=== PATIENT | male | born 1985 | race Caucasian/White ===

== ENCOUNTER 2018-05-20 02:44 | Emergency (ER) | payer SELFPAY ==
[~2018-05-20] VITALS: Ht 180.3 cm; Wt 74.8 kg
[2018-05-20 03:26] LABS: BASOPHIL % 0.7 % (0-2); PLATELET COUNT 188 x10^3mcL (130-400); RED CELL DISTRIBUTION WIDTH 13.2 % (11.5-14.5)
[2018-05-20 03:53] LABS: CALCIUM 9.6 mg/dL (8.5-10.1); CARBON DIOXIDE 27.5 mmol/L (21-32); CHLORIDE SERUM 100 mmol/L (98-107); CREATININE SERUM 0.9 mg/dL (0.7-1.3); GFR1 > 60 mL/min; GLUCOSE SERUM 94 mg/dL (74-106); POTASSIUM SERUM 4.1 mmol/L (3.5-5.1); SODIUM SERUM 136 mmol/L (136-145)
[2018-05-20 03:58] LABS: ALBUMIN 4.6 g/dL (3.4-5.0); ALKALINE PHOSPHATASE 42 U/L (46-116); ALT/SGPT 22 U/L (16-63); AST/SGOT 17 U/L (15-37); BILIRUBIN TOTAL 0.53 mg/dL (0.20-1.00)
[2018-05-20 04:06] LABS: TOTAL PROTEIN, SERUM 8.5 g/dL (6.4-8.2)
[2018-05-20 04:49] LABS: microscopic required? YES; urine erythrocyte 3+ (NEGATIVE)
[2018-05-20 08:38] VITALS: BP 111/65
== END 2018-05-20 08:38 | disposition home or self-care (01) ==
LOC: ED 02:44
PROVIDERS: Emergency Medicine
DX: R31.9 Hematuria, unspecified (principal); R80.9 Proteinuria, unspecified
CPT/HCPCS: J1885; J7030; Q0092

== ENCOUNTER 2018-09-21 11:27 | Emergency (ER) | payer OTHER ==
[~2018-09-21] VITALS: Ht 180.3 cm; Wt 77.7 kg
[2018-09-21 11:37] VITALS: BP 148/89
== END 2018-09-21 13:00 | disposition home or self-care (01) ==
LOC: ED 11:27
DX: S96.911A Strain of unspecified muscle and tendon at ankle and foot level, right foot, initial encounter (principal); X58.XXXA Exposure to other specified factors, initial encounter; Y93.89 Activity, other specified; Y92.89 Other specified places as the place of occurrence of the external cause; Y99.8 Other external cause status
CPT/HCPCS: Q0092